=== PATIENT | female | born 1975 | race African-American/Black ===

== ENCOUNTER 2022-03-24 05:45 | Day surgery (SDC) | payer OTHER | END 2022-03-24 09:25 | disposition home or self-care (01) | LOC: AMB-ENDOS 05:45 → CIR.AMB 10:45 → AMB-ENDOS 10:45 | PROVIDERS: ATTEND Surgery | DX: K29.00 Acute gastritis without bleeding (principal); K44.9 Diaphragmatic hernia without obstruction or gangrene; Z20.822 Contact with and (suspected) exposure to COVID-19; I10 Essential (primary) hypertension ==